=== PATIENT | female | born 1970 | race Asian ===

== ENCOUNTER 2023-08-03 01:21 | Emergency (ER) | payer BC ==
[~2023-08-03] VITALS: Ht 152.4 cm; Wt 61.7 kg
[2023-08-03 01:34] VITALS: BP_SYST 127; PULSE 82; RESP 16; TEMP 97.8; O2SAT 95
[2023-08-03 02:14] VITALS: BP_SYST 127; PULSE 82; RESP 16; TEMP 97.8; O2SAT 95
== END 2023-08-03 02:14 | disposition home or self-care (01) ==
LOC: SED 01:21
DX: Z00.8 Encounter for other general examination (principal); F41.1 Generalized anxiety disorder; H57.89 Other specified disorders of eye and adnexa; E78.5 Hyperlipidemia, unspecified; Z79.899 Other long term (current) drug therapy
CPT/HCPCS: 99281